=== PATIENT | female | born 1970 | race Hispanic/Latino ===

== ENCOUNTER 2023-02-20 08:16 | Outpatient (CLI) | payer BC ==
[2023-02-20] MEDS ORDERED: Iopamidol-370 76% 500 ML MDV (1 ML CHARGE) ONE (15:10)
== END 2023-02-20 08:17 | disposition home or self-care (01) ==
LOC: BICCT 08:16
PROVIDERS: ATTEND Physician Assistant Medical
DX: R18.8 Other ascites (principal); R10.10 Upper abdominal pain, unspecified; F10.20 Alcohol dependence, uncomplicated
CPT/HCPCS: 74177; Q9967